=== PATIENT | male | born 1980 | race African-American/Black ===

== ENCOUNTER 2016-10-09 10:38 | Emergency (ER) | payer OTHER | END 2016-10-09 10:39 | disposition home or self-care (01) | LOC: CFTX 10:38 | DX: L84 Corns and callosities (principal) | CPT/HCPCS: 99282 ==

== ENCOUNTER 2016-11-05 13:40 | Emergency (ER) | payer OTHER | END 2016-11-05 13:44 | disposition home or self-care (01) | LOC: CFTX 13:40 | DX: L03.116 Cellulitis of left lower limb (principal); L03.115 Cellulitis of right lower limb; F17.210 Nicotine dependence, cigarettes, uncomplicated | CPT/HCPCS: 82947; 99282 ==

== ENCOUNTER 2017-03-07 21:34 | Emergency (ER) | payer OTHER ==
[~2017-03-07] VITALS: Ht 180.3 cm; Wt 90.7 kg
== END 2017-03-08 00:42 | disposition home or self-care (01) ==
LOC: CED 21:34
DX: B07.0 Plantar wart (principal); F17.210 Nicotine dependence, cigarettes, uncomplicated
CPT/HCPCS: 99283